=== PATIENT | female | born 1955 | race Caucasian/White ===

== ENCOUNTER → 2025-05-03 12:15 | Outpatient (CLI) | payer OTHER, BC, SELFPAY ==
--- NOTE | 2025-05-03 | DI.RAD.S_ITS ---
PROCEDURE: XR KNEE LT 3V INDICATIONS: KNEE PAIN TECHNIQUE: 3 views of the knee were acquired. COMPARISON: None. FINDINGS: Bones: No fractures or dislocations. Tricompartmental osteoarthritic changes with joint space narrowing and osteophytosis. This is severe involving the lateral patellofemoral compartment. No suspicious bony lesions. Soft tissues: No joint effusion. No suspicious soft tissue calcifications. IMPRESSION: Severe degenerative changes, most pronounced within the lateral patellofemoral compartment. Dictated by: Crescencio Carson M.D. on 05/03/2025 at 15:26 Approved by: Crescencio Carson M.D. on 05/03/2025 at 15:27
--- NOTE | 2025-05-03 12:23 | DI.RAD.S_ITS ---
PROCEDURE: XR KNEE RT 3V INDICATIONS: KNEE PAIN TECHNIQUE: 3 views of the knee were acquired. COMPARISON: [facility] [place], [place], XR KNEE 4+ VIEWS RIGHT, 02/24/2024, 9:32. FINDINGS: Bones: No fractures or dislocations. Tricompartmental osteoarthritic changes with joint space narrowing and osteophytosis. Severe joint space narrowing involving the lateral patellofemoral compartment. No suspicious bony lesions. Soft tissues: Small joint effusion. No suspicious soft tissue calcifications. IMPRESSION: Severe osteoarthritic changes, most pronounced within the lateral patellofemoral compartment. Dictated by: Crescencio Carson M.D. on 05/03/2025 at 15:27 Approved by: Crescencio Carson M.D. on 05/03/2025 at 15:28
== END ==
PROVIDERS: PCP Internal Medicine; Referring Provider Family Medicine; Visit Provider Family Medicine
DX: M25.562 Pain in left knee (principal); M17.0 Bilateral primary osteoarthritis of knee
CPT/HCPCS: 73562